=== PATIENT | female | born 1985 | race Caucasian/White ===

== ENCOUNTER → 2019-12-19 | Outpatient (CLI) | payer MEDICAID ==
[~2019-12-19] MED LIST: DARVOCET N; MACROBID100 MG PO; METRONIDAZOLE; NO HOME MEDICATIONS; PERCOCET 500 MG1 TAB PO; PHENERGAN W/CO120 ML PO; PRENATAL VITAMI1 TA5 PO
== END ==
LOC: COL.LAB 14:55
DX: N91.2 Amenorrhea, unspecified (principal)

== ENCOUNTER → 2019-12-22 | Outpatient (CLI) | payer MEDICAID | LOC: COL.LAB 11:23 | DX: O20.0 Threatened abortion (principal) ==

== ENCOUNTER 2024-04-14 21:09 | Emergency (ER) | payer MEDICAID ==
[~2024-04-14] VITALS: Ht 157.5 cm; Wt 109.1 kg
[~2024-04-14 21:09] MED LIST changes: +ANTACID500 M1 CHEW; +MOTRIN 800800 MG/TAB PO; +PERCOCET 325 MG1 TA2 PO; +PNV-SELECT1 TAB PO
[2024-04-14 21:12] VITALS: TEMP 98.5
[2024-04-14 22:30] LABS: URINE APPEARANCE CLEAR (CLEAR/HAZY); URINE BLOOD NEGATIVE (NEGATIVE); URINE COLOR YELLOW (YELLOW); URINE GLUCOSE NEGATIVE (NEGATIVE); URINE KETONE TRACE (NEGATIVE); URINE NITRATE NEGATIVE (NEGATIVE); URINE PROTEIN(semi-quant) NEGATIVE (NEGATIVE); URINE UROBILINOGEN 0.2 E.U/dL (0.2-1.0)
[2024-04-14] MEDS ORDERED: diphenhydrAMINE 50 MG/ML 1 ML VIAL IV ONE (22:30)
[2024-04-14 22:49] LABS: BASO % 0.3 % (0.0-2.0); EOS # 0.1 K/mm3 (0.0-0.7); EOS % 0.7 % (0.0-4.0); GRAN # 6.1 K/mm3 (1.4-6.5); GRAN % 69.8 % (42.2-75.2); HEMATOCRIT 36.7 % (37.0-47.0); HEMOGLOBIN 12.4 g/dl (12.5-16.0); LYMPH # 1.9 K/mm3 (1.2-3.4); LYMPH % 22.2 % (20.0-51.0); MEAN CELL VOLUME 87 fl (80.0-100.0); MEAN CORPUSCULAR HEMOGLOBIN 30 pg (27-31); MEAN CORPUSCULAR HGB CONC 34 g/dl (33.0-37.0); MEAN PLATELET VOLUME 9.9 fl (7.4-10.4); MONO # 0.6 K/mm3 (0.1-0.6); MONO % 6.7 % (1.7-9.3); PLATELET COUNT 285 K/mm3 (130-400); RED BLOOD COUNT 4.21 M/mm3 (4.10-5.30); REDCELL DISTRIBUTION WIDTH-CV 14.9 % (11.5-14.5)
[2024-04-14 22:49] LABS: ALBUMIN 3.4 g/dL (3.5-5.0); BILIRUBIN,TOTAL 0.3 mg/dL (0.2-1.2); CALCIUM 9.4 mg/dL (8.4-10.2); CREATININE, serum 0.73 mg/dL (0.57-1.11); POTASSIUM 4.4 mEq/L (3.5-4.5); TOTAL PROTEIN 7.9 g/dl (6.2-8.1)
[2024-04-14 23:08] LABS: COLLECTION METHOD CLEAN CATCH
[2024-04-14 23:31] VITALS: BP 122/73; PULSE 72
== END 2024-04-14 23:31 | disposition home or self-care (01) ==
LOC: COL.ER 21:09
PROVIDERS: Emergency Medicine
DX: O26.891 Other specified pregnancy related conditions, first trimester (principal); R10.13 Epigastric pain; Z3A.13 13 weeks gestation of pregnancy
CPT/HCPCS: J1200; J2765